=== PATIENT | male | born 1985 ===

== ENCOUNTER 2020-10-02 13:44 | Emergency (ER) | payer SELFPAY ==
[2020-10-02 13:51] VITALS: BP 139/87
[2020-10-02] MEDS ORDERED: DIPHtheria,PERTUSSIS(ACELL),TETANUS VACCINE/PF 0.5 ML VIAL IM ONE (14:47)
--- NOTE | 2020-10-02 15:33 | Emergency Department Report ---
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 Patient states that a shovel was standing upright and accidentally fell and hit him in the head. He presents due to the laceration in the forehead. He denies any headache, loss of consciousness, vision changes, neck pain, numbness, weakness, bowel or bladder incontinence, speech disturbance, gait disturbance, any other injury. He is unsure of his last tetanus immunization. No past medical history. No allergies to medications. - Related Data Allergies/Adverse reactions: Allergies Allergy/AdvReac Type Severity Reaction Status Date / Time No Known Allergies Allergy Unverified 10/02/20 13:51 ED Review of Systems ROS: Stated complaint: GASH ON HEAD/BLEEDING Other details as noted in HPI Comment: All other systems reviewed and negative ED Past Medical Hx - Past Medical History Previous Medical History?: No - Surgical History Past Surgical History?: No - Social History Smoking Status: Never Smoker Substance Use Type: Alcohol ED Physical Exam - General Limitations: No Limitations General appearance: alert, in no apparent distress - Head Head exam: Present: other (1.5 cm laceration present to the mid upper forehead, no active bleeding, no foreign body, no muscle involvement, no skull bony ttp, no deformity, no crepitus, superficial) - Eye Eye exam: Present: normal appearance, PERRL, EOMI, other (no raccoon eyes). Absent: periorbital swelling, periorbital tenderness - ENT ENT exam: Present: mucous membranes moist, other (no jones signs) - Neck Neck exam: Present: normal inspection, full ROM. Absent: tenderness - Respiratory Respiratory exam: Absent: respiratory distress, accessory muscle use - Neurological Exam Neurological exam: Present: alert, oriented X3, CN II-XII intact, normal gait. Absent: motor sensory deficit - Psychiatric Psychiatric exam: Present: normal affect, normal mood - Skin Skin exam: Present: warm, dry ED Course Vital Signs 10/02/20 13:48 Temperature 98.4 F Pulse Rate 78 Respiratory 16 Rate Blood Pressure 139/87 O2 Sat by Pulse 98 Oximetry - Laceration /Wound Repair Upper Face Wound Location: face (mid upper forehead) Wound Length (cm): 1 (1.5 cm total) Wound's Depth, Shape: superficial Wound Explored: clean Irrigated w/ Saline (ccs): 50 Betadine Prep?: Yes Volume Anesthetic (ccs): 0 Wound Debrided: moderate Wound Repaired With: Steri-strips, Dermabond Sterile Dressing Applied?: No Progress: Wound irrigated with saline and thoroughly scrubbed with Betadine, no muscle involvement, superficial, no active bleeding, no foreign body, multiple layers of Dermabond placed with good skin approximation, Steri-Strips applied, patient tolerated well, no complications, bleeding controlled, sterile dressing applied - Medical Decision Making Language interpretation by higinio Razo Patient is a 35-year-old male presents emergency room with complaints of a lace ration to the forehead that occurred just prior to arrival. Patient states that a shovel was standing upright and accidentally fell and hit him in the head. He presents due to the laceration in the forehead. He denies any headache, loss of consciousness, vision changes, neck pain, numbness, weakness, bowel or bladder incontinence, speech disturbance, gait disturbance, any other injury. He is u nsure of his last tetanus immunization. No past medical history. No allergies to medications. VSS. on exam: 1.5 cm laceration present to the mid upper forehead, no active bleeding, no foreign body, no muscle involvement, no skull bony ttp, no deformity, no crepitus, superficial, no focal neuro deficit, no jones signs, no raccoon eyes. Laceration repaired per procedure note with Dermabond and Steri-Strips. [place] CT head rule is 0, CT head imaging is not recommended. Advised patient Please keep area clean, dry, covered. Please do not get area wet at all for the next 2 days. After 2 days may gently wash with antibacterial soap and water and pat dry twice a day. No hot tub, no pool, no soaking in water. After 2 days, showering is fine. Follow-up with a primary care doctor for reexamination. Return to emergency room for any new or worsening symptoms. Critical care attestation.: If time is entered above; I have spent that time in minutes in the direct care of this critically ill patient, excluding procedure time. ED Disposition Clinical Impression: Forehead laceration Qualifiers: Encounter type: initial encounter Qualified Code(s): S01.81XA - Laceration without foreign body of other part of head, initial encounter Disposition: TO HOME OR SELFCARE Is pt being admited?: No Does the pt Need Aspirin: No Condition: Stable Instructions: Sutures, Susan, or Adhesive Wound Closure Additional Instructions: Please keep area clean, dry, covered. Please do not get area wet at all for the next 2 days. After 2 days may gently wash with antibacterial soap and water and pat dry twice a day. No hot tub, no pool, no soaking in water. After 2 days, showering is fine. Follow-up with a primary care doctor for reexamination. Return to emergency room for any new or worsening symptoms. Mantenga el samuel limpia, seca y cubierta. Por favor, no moje el samuel en absoluto russ los prximos 2 ryan. Despus de 2 ryan, puede lavarse suavemente con agua y jabn antibacteriano y secar dos veces al da. Sin baera de hidromasaje, sin piscina, sin remojo en agua. Despus de 2 ryan, la ducha est frannie. Anu un seguimiento con un mdico de atencin primaria para un nuevo examen. Regrese a la juany de emergencias por cualquier sntoma nuevo o que empeore. Referrals: PRIMARY MD FABIAN [Primary Care Provider] - 3-5 Days SERGO HOUSTON MD [Staff Physician] - 3-5 Days Time of Disposition: 15:31 Print Language: WELSH
== END 2020-10-02 16:05 | disposition home or self-care (01) ==
LOC: ED 13:44
DX: S01.81XA Laceration without foreign body of other part of head, initial encounter (principal); W18.30XA Fall on same level, unspecified, initial encounter; Y93.89 Activity, other specified; Y92.89 Other specified places as the place of occurrence of the external cause; Y99.8 Other external cause status
CPT/HCPCS: 90471; 90715; 99282

== ENCOUNTER 2022-03-08 11:52 | Emergency (ER) | payer SELFPAY ==
[2022-03-08] MEDS ORDERED: METOCLOPRAMIDE 10 MG/2 ML INJ IV ONE (13:57)
[2022-03-08] MEDS ORDERED: FAMOTIDINE 20 MG/2 ML INJ IV ONE ×2 (13:57→20:46)
[2022-03-08] MEDS ORDERED: diphenhydrAMINE 50 MG/ML VIAL IV ONE (13:57)
[2022-03-08] MEDS ORDERED: SODIUM CHLORIDE 0.9% 1000 ML 1,000 ML IV ONE (13:57)
[2022-03-08 15:00] LABS: Basophils % (Auto) 0.1 % (0.0-1.8); Hematocrit 40.9 % (35.5-45.6); Lymphocytes # (Auto) 0.9 K/mm3 (1.2-5.4); Lymphocytes % (Auto) 6.3 % (13.4-35.0); Mean Corpuscular HGB Conc 34 % (32-34); Mean Corpuscular Volume 88 fl (84-94); Monocytes # (Auto) 0.6 K/mm3 (0.0-0.8); Monocytes % (Auto) 4.5 % (0.0-7.3); Platelet Count 329 K/mm3 (140-440); Red Blood Count 4.64 M/mm3 (3.65-5.03)
[2022-03-08 15:08] LABS: Albumin 5.1 g/dL (3.9-5); Calcium 9.1 mg/dL (8.4-10.2)
--- NOTE | 2022-03-08 16:40 | XRay Report ---
CHEST 1 VIEW 03/08/2022 3:32 PM INDICATION / CLINICAL INFORMATION: cough. Patient reports nausea with vomiting and weakness since this morning. COMPARISON: None available. FINDINGS: SUPPORT DEVICES: None. HEART / MEDIASTINUM: No significant abnormality. LUNGS / PLEURA: No significant pulmonary abnormality. No significant pleural effusion. No pneumothora x. ADDITIONAL FINDINGS: No significant additional findings. IMPRESSION: 1. No acute abnormality of the chest. Signer Name: Benjie Myers MD Signed: 03/08/2022 4:35 PM Workstation Name: [id number]
[2022-03-08 16:50] VITALS: BP 139/73
[2022-03-08 17:01] LABS: Bilirubin,Urine Negative (Negative); Blood,Urine Negative (Negative); Color,Urine Straw (Yellow); Protein,Urine <15 mg/dL mg/dL (Negative); Urobilinogen,Urine < 2.0 mg/dL (<2.0)
[2022-03-08 17:21] LABS: Hyaline Casts,Urine 63 /LPF; Mucus,Urine 2+ /HPF
--- NOTE | 2022-03-08 17:29 | Cat Scan Report ---
CT ABDOMEN AND PELVIS WITH CONTRAST HISTORY: N/V, Epigastric pain, hematemesis. COMPARISON: None. TECHNIQUE: CT images of the abdomen and pelvis were obtained following administration of intravenous contrast. All CT scans at this location are performed using CT dose reduction for ALARA by means of automated exposure control. CONTRAST: 100 ml of intravenous contrast administered. FINDINGS: Lungs/bones: Several granulomas in the lower lungs Abdomen/pelvis: There is diffuse fatty infiltration of the liver. The spleen, adrenal glands, pancre as, gallbladder appear normal. Appendix appears normal. There may be some mild thickening of the desc ending colon and sigmoid colon however there is incomplete distention. Urinary bladder appears normal . Thickening of the GE junction and distal esophagus. Distal stomach wall is minimally thickened howeve r there is incomplete distention. Bilateral kidneys appear normal. No bowel obstruction is seen. Meghan ac and SMA appear normal. Urinary bladder appears normal. IMPRESSION: 1. Possible thickening of the distal esophagus and GE junction. Findings could represent inflammation , infection however underlying wall thickening or even mass cannot be completely excluded. Findings a best seen on axial image 31. Further evaluation workup with GI recommended. 2. Questionable thickening of the descending colon and sigmoid colon however this may be secondary to incomplete distention. Clinical correlation. Signer Name: Mohan Cantrell MD Signed: 03/08/2022 5:25 PM Workstation Name: [id number]
[2022-03-08] MEDS ORDERED: PIPERACILLIN/TAZOBACTAM 3.375 3.375 GM/50 ML BAG IV ONE (17:33)
--- NOTE | 2022-03-08 18:37 | Emergency Department Report ---
ED N/V/D HPI - General Chief complaint: Nausea/Vomiting/Diarrhea Stated complaint: N/V Source: EMS Mode of arrival: Wheelchair Limitations: Language Barrier - History of Present Illness Initial comments: Patient is a 37-year-old male with no past medical history presents to the ED with complaint of acute onset persistent intractable nausea and vomiting for the last 6 hours. Patient states that he has not been able to keep anything down since the onset of the symptoms. Patient states that he has also experienced some hematemesis due to the intractable nature of the vomiting. Patient denies abdominal pain, dizziness, syncope, chest pain or shortness of breath, fever, chills, cough, sore throat, dysuria, urinary frequency and urgency, testicular pain, hematemesis or diarrhea. MD complaint: nausea, vomiting -: hour(s) (6) Description of Vomiting: food contents, watery, bilious Associated Abdominal Pain: No Location: diffuse Radiation: none Severity: severe Pain Scale: 0 Quality: dull Consistency: intermittent Improves with: none Worsens with: none Context: possible food poisoning Associated Symptoms: denies other symptoms, loss of appetite, malaise, nausea/vomiting, weakness. denies: myalgias, chest pain, cough, diaphoresis, headaches, rash, dysuria, shortness of breath, syncope - Related Data Previous Rx's Medication Instructions Recorded Last Taken Type Ciprofloxacin HCl 500 mg PO Q12H #20 tab 03/08/22 Unknown Rx Famotidine [Pepcid] 20 mg PO BID #90 tablet 03/08/22 Unknown Rx Omeprazole 40 mg PO DAILY #60 cap 03/08/22 Unknown Rx Ondansetron [Zofran Odt] 4 mg PO Q6HR PRN #20 tab.rapdis 03/08/22 Unknown Rx metroNIDAZOLE [Flagyl] 500 mg PO Q8HR #30 tab 03/08/22 Unknown Rx Allergies Allergy/AdvReac Type Severity Reaction Status Date / Time No Known Allergies Allergy Verified 03/08/22 12:10 ED Review of Systems ROS: Stated complaint: N/V Other details as noted in HPI Constitutional: weakness. denies: chills, fever Eyes: denies: eye pain, eye discharge, vision change ENT: denies: ear pain, throat pain Respiratory: denies: cough, shortness of breath, wheezing Cardiovascular: denies: chest pain, palpitations Endocrine: no symptoms reported Gastrointestinal: nausea, vomiting. denies: abdominal pain, diarrhea Genitourinary: denies: urgency, dysuria Musculoskeletal: denies: back pain, joint swelling, arthralgia Skin: denies: rash, lesions Neurological: denies: headache, weakness, paresthesias Psychiatric: denies: anxiety, depression Hematological/Lymphatic: denies: easy bleeding, easy bruising ED Past Medical Hx - Past Medical History Previous Medical History?: No - Surgical History Past Surgical History?: No - Social History Smoking Status: Never Smoker Substance Use Type: None - Medications Home Medications: Home Medications Medication Instructions Recorded Confirmed Last Taken Type Ciprofloxacin HCl 500 mg PO Q12H #20 tab 03/08/22 Unknown Rx Famotidine [Pepcid] 20 mg PO BID #90 tablet 03/08/22 Unknown Rx Omeprazole 40 mg PO DAILY #60 cap 03/08/22 Unknown Rx Ondansetron [Zofran Odt] 4 mg PO Q6HR PRN #20 tab.rapdis 03/08/22 Unknown Rx metroNIDAZOLE [Flagyl] 500 mg PO Q8HR #30 tab 03/08/22 Unknown Rx ED Physical Exam - General Limitations: Language Barrier General appearance: alert, in no apparent distress - Head Head exam: Present: atraumatic, normocephalic, normal inspection - Eye Eye exam: Present: normal appearance, PERRL, EOMI Pupils: Present: normal accommodation - ENT ENT exam: Present: normal exam, normal orophraynx, mucous membranes moist, TM's normal bilaterally, normal external ear exam - Neck Neck exam: Present: normal inspection, full ROM. Absent: tenderness - Respiratory Respiratory exam: Present: normal lung sounds bilaterally. Absent: respiratory distress, wheezes, rales, rhonchi, chest wall tenderness, accessory muscle use, decreased breath sounds, prolonged expiratory - Cardiovascular Cardiovascular Exam: Present: regular rate, normal rhythm, normal heart sounds. Absent: systolic murmur, diastolic murmur, rubs, gallop - GI/Abdominal GI/Abdominal exam: Present: soft, normal bowel sounds. Absent: tenderness, guarding, rebound, hyperactive bowel sounds, hypoactive bowel sounds, organomegaly - Extremities Exam Extremities exam: Present: normal inspection, full ROM, normal capillary refill. Absent: tenderness - Back Exam Back exam: Present: normal inspection, full ROM. Absent: tenderness, CVA tenderness (R), CVA tenderness (L), muscle spasm, paraspinal tenderness, verte bral tenderness - Neurological Exam Neurological exam: Present: alert, oriented X3, CN II-XII intact, normal gait, reflexes normal - Psychiatric Psychiatric exam: Present: normal affect, normal mood - Skin Skin exam: Present: warm, dry, intact, normal color. Absent: rash ED Course Vital Signs 03/08/22 03/08/22 03/08/22 12:05 14:42 16:49 Temperature 97.9 F Pulse Rate 80 98 H Respiratory 18 18 18 Rate Blood Pressure 114/74 134/77 139/73 [Right] O2 Sat by Pulse 100 100 100 Oximetry - Reevaluation(s) Reevaluation #1: 03/08/22 18:38 I paged and discussed the patient's case with the traffic counter on-call Dr. Lua who advised the patient be admitted and that he be placed as a consult. ED Medical Decision Making - Lab Data Result diagrams: 03/08/22 14:16 03/08/22 19:26 - Radiology Data Radiology results: report reviewed, [place] [address] Cat Scan Report Signed Patient: PENNIE MALIK MR#: [id number] : 1985 Acct:[id number] Age/Sex: 37 / M ADM Date: 03/08/22 Loc: ED Attending Dr: Ordering Physician: SHWETHA RAMIREZ Date of Service: 03/08/22 Procedure(s): CT abdomen pelvis w con Accession Number(s): [id number] cc: SHWETHA RAMIREZ CT ABDOMEN AND PELVIS WITH CONTRAST HISTORY: N/V, Epigastric pain, hematemesis. COMPARISON: None. TECHNIQUE: CT images of the abdomen and pelvis were obtained following administration of intravenous contrast. All CT scans at this location are performed using CT dose reduction for ALARA by means of automated exposure control. CONTRAST: 100 ml of intravenous contrast administered. FINDINGS: Lungs/bones: Several granulomas in the lower lungs Abdomen/pelvis: There is diffuse fatty infiltration of the liver. The spleen, adrenal glands, pancreas, gallbladder appear normal. Appendix appears normal. There may be some mild thickening of the descending colon and sigmoid colon however there is incomplete distention. Urinary bladder appears normal. Thickening of the GE junction and distal esophagus. Distal stomach wall is minimally thickened however there is incomplete distention. Bilateral kidneys appear normal. No bowel obstruction is seen. Celiac and SMA appear normal. Urinary bladder appears normal. IMPRESSION: 1. Possible thickening of the distal esophagus and GE junction. Findings could represent inflammation, infection however underlying wall thickening or even mass cannot be completely excluded. Findings a best seen on axial image 31. Further evaluation workup with GI recommended. 2. Questionable thickening of the descending colon and sigmoid colon however this may be secondary to incomplete distention. Clinical correlation. Signer Name: Mohan Cantrell MD Signed: 03/08/2022 5:25 PM Workstation Name: [id number] Transcribed By: CARMENZA Dictated By: OTONIEL CANTRELL MD Electronically Authenticated By: OTONIEL CANTRELL MD Signed Date/Time: 03/08/221724 DD/ 21 TD/TT: - Medical Decision Making This is a 37-year-old male with no past medical history presents to the ED with complaint of acute onset persistent intractable nausea and vomiting for the last 6 hours. Patient states that he has not been able to keep anything down since the onset of the symptoms. Patient states that he has also experienced some hematemesis due to the intractable nature of the vomiting. In the ED, patient is alert and oriented x3 and is not in any distress. Patient is hemodynamically stable. Patient was treated for nausea and vomiting in the ED and also normal saline 1 L IV bolus x1 and antacids. Chest x-ray showed no acute cardiopulmonary abnormalities or pneumonitis. Abdomen pelvis CT scan with IV contrast showed possible thickening of the distal esophagus and GE junction. Findings could represent inflammation, infection however underlying wall thickening or even mass cannot be completely excluded. Findings a best seen on axial image 31. It also showed questionable thickening of the descending colon and sigmoid colon however this may be secondary to incomplete distention. Clinical correlation. All lab test results were reviewed and are all nonactionable except for acute leukocytosis of 14,300, BUN of 57, creatinine 1.9, hyponatremia of 135 mmol/L and hypochloremia of 87.5 mmol/L. I therefore paged and discussed the patient's case with the traffic counter on-call Dr. Jackson who advised the patient be given IV fluids and admitted by the hospitalist physician on-call and he shall consult on the patient. I therefore discussed the patient's case with the hospitalist physician Dr. Platt who advised the patient be hydrated with normal saline 2 L IV, and that the CMP test be repeated and if the creatinine level is trending down the patient be discharged home to continue with hydration. The repeat CMP showed BUN of 42 and creatinine of 1.4. Patient was therefore discharged home on medications and advised to follow-up with his primary care physician in 5 to 7 days for reevaluation. Patient was advised to return to the ED immediately if symptoms get worse. - Differential Diagnosis dehydration; ARF; Gastritis; Gastroenteritis; Duodenitis; UTI; GERD Critical care attestation.: If time is entered above; I have spent that time in minutes in the direct care of this critically ill patient, excluding procedure time. ED Disposition Clinical Impression: Nausea and vomiting in adult patient, FRANCISCO (acute kidney injury), Acute duodenit is, Dehydration, Viral gastroenteritis GERD (gastroesophageal reflux disease) Qualifiers: Esophagitis presence: esophagitis presence not specified Qualified Code(s): K21.9 - Gastro-esophageal reflux disease without esophagitis Disposition: 01 HOME / SELF CARE / HOMELESS Is pt being admited?: No Does the pt Need Aspirin: No Condition: Stable Instructions: Dehydration, Adult, [id number], Viral Gastroenteritis, Adult, [id number], Nausea and Vomiting, Adult, [id number], Dehydration, Adult, Gastroesophageal Reflux Disease, Adult, [id number] Additional Instructions: All lab test results were reviewed and are all nonactionable except for leukocytosis of 14,300, initial BUN of 57 and creatinine of 1.9, and repeat levels of 42 and 1.4. The abdomen pelvis CT scan with IV contrast showed possible thickening of the distal esophagus and GE junction. Findings could represent inflammation, infection however underlying wall thickening or even mass cannot be completely excluded. Findings a best seen on axial image 31. It also showed questionable thickening of the descending colon and sigmoid colon however this may be secondary to incomplete distention. Therefore take medication with food, drink plenty of fluids, follow-up with your primary care physician in 5 to 7 days for reevaluation. Return to the ED immediately if symptoms get worse. Prescriptions: Ciprofloxacin HCl 500 mg PO Q12H #20 tab metroNIDAZOLE [Flagyl] 500 mg PO Q8HR #30 tab Omeprazole 40 mg PO DAILY #60 cap Famotidine [Pepcid] 20 mg PO BID #90 tablet Ondansetron [Zofran Odt] 4 mg PO Q6HR PRN #20 tab.rapdis PRN Reason: Nausea And Vomiting Referrals: PRIMARY CARE, [Primary Care Provider] - 3-5 Days Forms: Work/School Release Form(ED) Time of Disposition: 18:43 Print Language: DIVEHI
[2022-03-08 20:06] LABS: Albumin 4.2 g/dL (3.9-5); Calcium 8.2 mg/dL (8.4-10.2)
[2022-03-08] MEDS ORDERED: PROCHLORPERAZINE EDISYLATE 10 MG/2 ML VIAL IV ONE (20:46)
== END 2022-03-09 01:20 | disposition home or self-care (01) ==
LOC: ED 11:52
DX: K21.9 Gastro-esophageal reflux disease without esophagitis (principal); R11.2 Nausea with vomiting, unspecified; K29.80 Duodenitis without bleeding; N17.9 Acute kidney failure, unspecified; E86.0 Dehydration; A08.4 Viral intestinal infection, unspecified
CPT/HCPCS: 36415; 71045; 74177; 80053; 81001; 83690; 85025; 96361; 96365; 96375; 96376; 99285; J0780; J1200; J2543; J2765; J3490; J7030; Q9967